=== PATIENT | male | born 2000 | race African-American/Black ===

== ENCOUNTER 2022-04-06 22:01 | Emergency (ER) | payer OTHER ==
[~2022-04-06] VITALS: Ht 180.3 cm; Wt 122.5 kg
[2022-04-06 22:40] VITALS: BP 132/84; TEMP 97.4
== END 2022-04-06 22:40 | disposition home or self-care (01) ==
LOC: ED 22:01
DX: L50.8 Other urticaria (principal)
CPT/HCPCS: 96372; 99282; J1200; J2930

== ENCOUNTER 2023-01-12 14:40 | Emergency (ER) | payer OTHER ==
[~2023-01-12] VITALS: Ht 180.3 cm; Wt 124.7 kg
[2023-01-12 14:44] VITALS: BP 122/78; TEMP 98.2
[2023-01-12 15:26] LABS: PLATELET COUNT 333 K/uL (142-355)
[2023-01-12 15:48] LABS: POTASSIUM 3.7 mmol/L (3.6-5.2)
== END 2023-01-12 18:34 | disposition short-term general hospital (02) ==
LOC: ED 14:40
PROVIDERS: Emergency Medicine Emergency Medical Services
DX: I48.20 Chronic atrial fibrillation, unspecified (principal); Z11.52 Encounter for screening for COVID-19
CPT/HCPCS: 80053; 83735; 84484; 85027; 85610; 85730; 87635; 93005; 96361; 96365; 96375; 99285; J1650; J3490; U0003